=== PATIENT | male | born 1990 | race Caucasian/White ===

== ENCOUNTER 2017-02-25 21:36 | Emergency (ER) | payer OTHER ==
[2017-02-25] MEDS ORDERED: SODIUM CHLORIDE 0.9% 1,000 ML IV STA (21:46)
[2017-02-25] MEDS ORDERED: ONDANSETRON 4 MG/2 ML VIAL IVP STA (21:46)
[2017-02-25] MEDS ORDERED: FAMOTIDINE 20 MG/2 ML VIAL IV STA (21:51)
[2017-02-25] MEDS ORDERED: KETOROLAC 30 MG/ML 1 ML VIAL IVP STA (21:51)
[2017-02-25] MEDS ORDERED: SODIUM CHLORIDE 0.9% 2,000 ML IV ONE (21:51)
[2017-02-25 22:14] LABS: Basophils % (A) 0 %; Eosinophils # (A) 0.3 k/uL (0-0.7); Eosinophils % (A) 2 %; HCT 52.3 % (39.0-53.0); HGB 16.6 gm/dL (13.0-17.5); Lymphocytes % (A) 8 %; MCH 29.5 pg (25.0-35.0); MCHC 31.8 g/dL (31.0-37.0); Mean Platelet Volume 7.8; Monocytes # (A) 0.6 k/uL (0-1.0); Monocytes % (A) 4 %; Neutrophils # (A) 10.7 k/uL (1.3-7.7); Neutrophils % (A) 84 %; Platelet Count 323 k/uL (150-450); RBC 5.62 m/uL (4.30-5.90); RDW 14.7 % (11.5-15.5); WBC 12.7 k/uL (3.8-10.6)
[2017-02-25 22:30] LABS: ALT 63 U/L (21-72); AST 34 U/L (17-59); Albumin 4.5 g/dL (3.5-5.0); Alkaline Phosphatase 93 U/L (38-126); Amylase 50 U/L (30-110); Anion Gap 12 mmol/L; Blood Urea Nitrogen 16 mg/dL (9-20); Calcium 9.7 mg/dL (8.4-10.2); Carbon Dioxide 25 mmol/L (22-30); Chloride 106 mmol/L (98-107); Glucose 93 mg/dL (74-99); Lipase 107 U/L (23-300); Potassium 4.5 mmol/L (3.5-5.1); Sodium 143 mmol/L (137-145); Total Bilirubin 0.7 mg/dL (0.2-1.3); Total Protein 7.5 g/dL (6.3-8.2)
--- NOTE | 2017-02-25 22:32 | ED ---
Abdominal Pain HPI - General Chief Complaint: Abdominal Pain Stated Complaint: vomiting Time Seen by Provider: 02/25/17 21:46 Source: patient, RN notes reviewed Mode of arrival: ambulatory Limitations: no limitations - History of Present Illness Initial Comments: 26-year-old male presents emergency Department chief complaint abdominal pain. Patient states pain started earlier today associated with nausea vomiting diarrhea. Patient states every time he tries to eat he states he vomits and has diarrhea. Patient denies any contacts with some symptoms. He complains of diffuse abdominal pain nonradiating. Patient states nothing is helping the symptoms at this time if symptoms become worse other than eating. Patient denies fever, chills, night sweats. Denies headache, neck pain or neck stiffness. Patient has no dysuria no hematuria denies any melena or hematochezia. - Related Data Home Medications Medication Instructions Recorded Confirmed Ibuprofen [Motrin] 800 mg PO TID PRN 02/25/17 02/25/17 Previous Rx's Medication Instructions Recorded Ondansetron Odt [Zofran Odt] 4 mg PO Q8HR PRN #10 tab 02/25/17 Allergies Allergy/AdvReac Type Severity Reaction Status Date / Time clarithromycin [From Biaxin] Allergy Unknown Verified 02/25/17 21:59 pertussis vaccine,adsorbed Allergy Unknown Verified 02/25/17 21:59 [Pertussis Vaccine,Adsorbed] Review of Systems ROS Statement: Those systems with pertinent positive or pertinent negative responses have been documented in the HPI. ROS Other: All systems not noted in ROS Statement are negative. Past Medical History Past Medical History: Hypertension History of Any Multi-Drug Resistant Organisms: None Reported Past Surgical History: No Surgical Hx Reported Past Psychological History: No Psychological Hx Reported Smoking Status: Current every day smoker Past Alcohol Use History: Occasional Past Drug Use History: Marijuana General Exam Limitations: no limitations General appearance: alert, in no apparent distress Head exam: Present: atraumatic, normocephalic, normal inspection Eye exam: Present: normal appearance, PERRL, EOMI. Absent: scleral icterus, conjunctival injection, periorbital swelling ENT exam: Present: normal exam, normal oropharynx, mucous membranes moist, TM's normal bilaterally, normal external ear exam Neck exam: Present: normal inspection, full ROM. Absent: tenderness, meningismus, lymphadenopathy Respiratory exam: Present: normal lung sounds bilaterally. Absent: respiratory distress, wheezes, rales, rhonchi, stridor Cardiovascular Exam: Present: normal rhythm, tachycardia, normal heart sounds. Absent: systolic murmur, diastolic murmur, rubs, gallop, clicks GI/Abdominal exam: Present: soft, tenderness (Diffuse moderate), normal bowel sounds. Absent: distended, guarding, rebound, rigid Back exam: Absent: CVA tenderness (R), CVA tenderness (L) Neurological exam: Present: alert, oriented X3, CN II-XII intact Skin exam: Present: warm, dry, intact, normal color. Absent: rash Course Vital Signs 02/25/17 02/25/17 02/25/17 21:37 22:14 22:35 Temperature 98.9 F 100.7 F H 98.9 F Pulse Rate 110 H 96 94 Respiratory 20 81 H 18 Rate Blood Pressure 203/87 126/72 120/68 O2 Sat by Pulse 99 95 99 Oximetry 02/25/17 22:58 Temperature 99.7 F H Pulse Rate 92 Respiratory 18 Rate Blood Pressure 142/64 O2 Sat by Pulse 97 Oximetry Medical Decision Making - Medical Decision Making 26-year-old male presented for diarrhea.Patient states started today.Patient is improved after antiemetics and fluids.Patient was discharged Zofran.We discussed return parameters and close follow-up. - Lab Data Result diagrams: 02/25/17 22:02 02/25/17 22:02 Lab Results 02/25/17 02/25/17 02/25/17 Range/Units 22:02 22:02 22:41 WBC 12.7 H (3.8-10.6) k/uL RBC 5.62 (4.30-5.90) m/uL Hgb 16.6 (13.0-17.5) gm/dL Hct 52.3 (39.0-53.0) % MCV 93.0 (80.0-100.0) fL MCH 29.5 (25.0-35.0) pg MCHC 31.8 (31.0-37.0) g/dL RDW 14.7 (11.5-15.5) % Plt Count 323 (150-450) k/uL Neutrophils % 84 % Lymphocytes % 8 % Monocytes % 4 % Eosinophils % 2 % Basophils % 0 % Neutrophils # 10.7 H (1.3-7.7) k/uL Lymphocytes # 1.0 (1.0-4.8) k/uL Monocytes # 0.6 (0-1.0) k/uL Eosinophils # 0.3 (0-0.7) k/uL Basophils # 0.0 (0-0.2) k/uL Sodium 143 (137-145) mmol/L Potassium 4.5 (3.5-5.1) mmol/L Chloride 106 (98-107) mmol/L Carbon Dioxide 25 (22-30) mmol/L Anion Gap 12 mmol/L BUN 16 (9-20) mg/dL Creatinine 0.99 (0.66-1.25) mg/dL Est GFR (MDRD) Af Amer >60 (>60 ml/min/1.73 sqM) Est GFR (MDRD) Non-Af >60 (>60 ml/min/1.73 sqM) Glucose 93 (74-99) mg/dL Calcium 9.7 (8.4-10.2) mg/dL Total Bilirubin 0.7 (0.2-1.3) mg/dL AST 34 (17-59) U/L ALT 63 (21-72) U/L Alkaline Phosphatase 93 (38-126) U/L Total Protein 7.5 (6.3-8.2) g/dL Albumin 4.5 (3.5-5.0) g/dL Amylase 50 (30-110) U/L Lipase 107 (23-300) U/L Urine Color Yellow Urine Appearance Clear (Clear) Urine pH 5.5 (5.0-8.0) Ur Specific [place] 1.025 (1.001-1.035) Urine Protein Trace H (Negative) Urine Glucose (UA) Negative (Negative) Urine Ketones Negative (Negative) Urine Blood Negative (Negative) Urine Nitrite Negative (Negative) Urine Bilirubin Negative (Negative) Urine Urobilinogen <2.0 (<2.0) mg/dL Ur Leukocyte Esterase Negative (Negative) Disposition Clinical Impression: Gastroenteritis Disposition: HOME SELF-CARE Condition: Stable Instructions: Gastroenteritis (ED) Additional Instructions: Please return to the Emergency Department if symptoms worsen or any other concerns. Prescriptions: Ondansetron Odt [Zofran Odt] 4 mg PO Q8HR PRN #10 tab PRN Reason: Nausea Referrals: None,Stated [Primary Care Provider] - 1-2 days Time of Disposition: 23:02
[2017-02-25 22:35] VITALS: RESP 18
--- NOTE | 2017-02-25 22:41 | XR ---
EXAMINATION TYPE: XR KUB DATE OF EXAM: 02/25/2017 COMPARISON: NONE HISTORY: Abdominal pain TECHNIQUE: 2 views FINDINGS: There is no sign of intestinal obstruction or pneumoperitoneum. Fecal pattern is normal. Prudence ng bases are clear. There are no pathologic calcifications. IMPRESSION: Nonacute abdomen
[2017-02-25 22:51] LABS: Appearance,Urine Clear (Clear); Bilirubin,Urine Negative (Negative); Blood,Urine Negative (Negative); Color,Urine Yellow; Glucose,Urine (UA) Negative (Negative); Ketones,Urine Negative (Negative); Leukocyte Esterase,Urine Negative (Negative); Nitrite,Urine Negative (Negative); PH, Urine 5.5 (5.0-8.0); Protein,Urine Trace (Negative); Specific Gravity,Urine 1.025 (1.001-1.035); Urobilinogen,Urine <2.0 mg/dL (<2.0)
[2017-02-25] MEDS ORDERED: ONDANSETRON 4 MG ODT STARTER PACK 2 TAB BTL PO STA (23:02)
[2017-02-25 23:43] VITALS: BP 118/87; PULSE 93; TEMP 98.3
== END 2017-02-26 00:18 | disposition home or self-care (01) ==
LOC: EC 21:36
DX: K52.9 Noninfective gastroenteritis and colitis, unspecified (principal); F17.200 Nicotine dependence, unspecified, uncomplicated; Z88.1 Allergy status to other antibiotic agents; Z88.7 Allergy status to serum and vaccine
CPT/HCPCS: 36415; 93005; 80053; 82150; 83690; 85025; 81003; 74018; 99284; 96374; 96375 ×2; 96361 ×2; J2405; J1885; S0119

== ENCOUNTER 2017-04-24 19:21 | Emergency (ER) | payer OTHER ==
[2017-04-24 19:28] VITALS: PULSE 94; TEMP 97
--- NOTE | 2017-04-24 19:53 | ED ---
General Adult HPI - General Chief complaint: Shortness of Breath Stated complaint: arm pain Time Seen by Provider: 04/24/17 19:25 Source: patient, RN notes reviewed Mode of arrival: ambulatory Limitations: no limitations - History of Present Illness Initial comments: This is a 27-year-old male who presents to the emergency department complaining of a month-long history of left arm pain patient states it comes and goes intermittently. Patient states when it comes it comes on quickly and is significant pain and then it goes away Sometimes it's just numb down to his fingertips from his shoulder and other times there is quite a bit of pain patient states currently he is not having any pain but just prior to arrival while eating dinner his arm started hurting severely and he wasn't moving it or using it. Patient states she has full range of motion of the shoulder currently without eliciting any pain. Patient denies any swelling of the arm. Patient denies any chest pain difficulty breathing or shortness of breath. Patient denies any recent fever chills or cough per patient denies any recent injury or trauma to that extremity. - Related Data Home Medications Medication Instructions Recorded Confirmed Ibuprofen [Motrin Ib] 800 mg PO TID PRN 04/24/17 04/24/17 Previous Rx's Medication Instructions Recorded Ibuprofen [Motrin] 600 mg PO Q6HR PRN #20 tab 04/24/17 Allergies Allergy/AdvReac Type Severity Reaction Status Date / Time clarithromycin [From Biaxin] Allergy Unknown Verified 04/24/17 20:26 pertussis vaccine,adsorbed Allergy Unknown Verified 04/24/17 20:26 [Pertussis Vaccine,Adsorbed] Review of Systems ROS Statement: Those systems with pertinent positive or pertinent negative responses have been documented in the HPI. ROS Other: All systems not noted in ROS Statement are negative. Past Medical History Past Medical History: Hypertension History of Any Multi-Drug Resistant Organisms: None Reported Past Surgical History: No Surgical Hx Reported Past Psychological History: No Psychological Hx Reported Smoking Status: Current every day smoker Past Alcohol Use History: Occasional Past Drug Use History: Marijuana General Exam - General Exam Comments Initial Comments: GENERAL: Patient is well-developed and well-nourished. Patient is nontoxic and well- hydrated and is in no acute distress. ENT: Neck is soft and supple. No significant lymphadenopathy is noted. Oropharynx is clear. Moist mucous membranes. Neck has full range of motion without eliciting any pain. EYES: The sclera were anicteric and conjunctiva were pink and moist. Extraocular movements were intact and pupils were equal round and reactive to light. Eyelids were unremarkable. PULMONARY: Unlabored respirations. Good breath sounds bilaterally. No audible rales rhonchi or wheezing was noted. CARDIOVASCULAR: There is a regular rate and rhythm without any murmurs gallops or rubs. SKIN: Skin is clear with no lesions or rashes and otherwise unremarkable. NEUROLOGIC: Patient is alert and oriented x3. Cranial nerves II through XII are grossly intact. Motor and sensory are also intact. Normal speech, volume and content. Symmetrical smile. MUSCULOSKELETAL: Normal extremities with adequate strength and full range of motion. Patient has good bilateral radial pulses. LYMPHATICS: No significant lymphadenopathy is noted PSYCHIATRIC: Normal psychiatric evaluation. Limitations: no limitations Course Vital Signs 04/24/17 04/24/17 04/24/17 19:24 20:03 20:18 Temperature 97.0 F L Pulse Rate 94 Respiratory 18 16 Rate Blood Pressure 167/84 Blood Pressure 143/72 [Left Arm] Blood Pressure 141/66 [Right Arm] O2 Sat by Pulse 97 Oximetry Medical Decision Making - Medical Decision Making EKG shows normal sinus rhythm at 89 bpm ID interval is 156 QRS is 88 QT interval 338 QTC is 411. Patient's EKG shows no ST segment elevation however there is some T-wave flattening in the inferior leads. Patient remained chest pain-free. Patient denies any difficulty breathing. X-rays of the C-spine chest and shoulder were negative. I will back into reevaluate the patient he never had any pain while in the emergency department. Disposition Clinical Impression: Arm pain, left Disposition: HOME SELF-CARE Instructions: Paresthesia (ED) Prescriptions: Ibuprofen [Motrin] 600 mg PO Q6HR PRN #20 tab PRN Reason: For pain Referrals: None,Stated [Primary Care Provider] - 1-2 days Angella Estevez MD [STAFF PHYSICIAN] - 1-2 days Time of Disposition: 20:35
[2017-04-24 20:04] VITALS: BP 143/72
[2017-04-24 20:19] VITALS: RESP 16
--- NOTE | 2017-04-24 20:26 | XR ---
EXAMINATION TYPE: XR chest 2V DATE OF EXAM: 04/24/2017 COMPARISON: 06/01/2009 HISTORY: Arm numbness TECHNIQUE: Frontal and lateral views of the chest are obtained. FINDINGS: Heart and mediastinum are normal. Lungs are clear. Diaphragm is normal. Bony thorax appear s normal. IMPRESSION: Normal chest. No change.
--- NOTE | 2017-04-24 20:27 | XR ---
EXAMINATION TYPE: XR cervical spine comp DATE OF EXAM: 04/24/2017 COMPARISON: NONE HISTORY: Arm numbness TECHNIQUE: 6 views FINDINGS: Vertebra have normal spacing and alignment. Posterior elements are intact. Neural foramina are widely patent. Atlantoaxial facet joint is normal. There are no cervical ribs. IMPRESSION: Normal cervical spine.
--- NOTE | 2017-04-24 20:28 | XR ---
EXAMINATION TYPE: XR shoulder limited LT DATE OF EXAM: 04/24/2017 COMPARISON: NONE HISTORY: Arm numbness TECHNIQUE: 2 views FINDINGS: I see no fracture nor dislocation. Joint spaces are normal. There are no pathologic calcifi cations. IMPRESSION: Negative left shoulder exam.
== END 2017-04-24 21:09 | disposition home or self-care (01) ==
LOC: EC 19:21
DX: M79.602 Pain in left arm (principal); R06.02 Shortness of breath; F17.200 Nicotine dependence, unspecified, uncomplicated; Z88.1 Allergy status to other antibiotic agents; Z88.7 Allergy status to serum and vaccine
CPT/HCPCS: 71046; 72050; 93005; 99285

== ENCOUNTER 2017-08-25 15:11 | Emergency (ER) | payer OTHER ==
[2017-08-25 15:51] VITALS: TEMP 98.3
--- NOTE | 2017-08-25 16:21 | ED ---
General Adult HPI - General Chief complaint: Upper Respiratory Infection Stated complaint: congestion Time Seen by Provider: 08/25/17 16:07 Source: patient Mode of arrival: ambulatory Limitations: no limitations - History of Present Illness Initial comments: This is a 27-year-old male past medical history of hypertension who presents today for chief complaint of congestion and cough. Patient states that Saturday night after work he began experiencing chills, congestion with facial fullness and sore throat. He took some Motrin and sinus pills which she states helped minimally. He did note that his mom gave him one Keflex pill, which he stated did not help either. Patient continued the symptomatic treatment on Saturday and he had a fever that day of 101F, today when the symptoms had not resolved he decided to presents to emergency department because he states that he needs to work tomorrow. In addition patient admits to increasing sputum that is yellowish in color, some body aches, and decreased . Patient denies influenza vaccination. Patient denies chest pain, shortness of breath, hemoptysis, night sweats, unintentional weight loss, pain in face/head with bending forward, sinus tenderness, difficulty swallowing, neck rigidity or tenderness, ear pain, photophobia or rash. Patient denies any back pain, abdominal pain, nausea or vomiting, numbness or tingling, dysuria or hematuria, constipation or diarrhea, headaches or visual changes, or any other complaints. - Related Data Home Medications Medication Instructions Recorded Confirmed Ibuprofen [Motrin Ib] 800 mg PO TID PRN 04/24/17 04/24/17 Previous Rx's Medication Instructions Recorded Ibuprofen [Motrin] 600 mg PO Q6HR PRN #20 tab 04/24/17 Albuterol Inhaler [Ventolin Hfa 1 - 2 puff INHALATION DAILY PRN 7 08/25/17 Inhaler] Days #1 inhaler Oxymetazoline 0.05% [address] 2 spray EA NOSTRIL DAILY 3 Days #1 08/25/17 [Afrin 0.05% [address]] bottle guaiFENesin [Mucinex] 600 mg PO Q12HR PRN 5 Days #10 08/25/17 tab.er.12h predniSONE 20 mg PO DAILY 3 Days #3 tab 08/25/17 Allergies Allergy/AdvReac Type Severity Reaction Status Date / Time clarithromycin [From Biaxin] Allergy Unknown Verified 08/25/17 15:51 pertussis vaccine,adsorbed Allergy Unknown Verified 08/25/17 15:51 [Pertussis Vaccine,Adsorbed] Review of Systems ROS Statement: Those systems with pertinent positive or pertinent negative responses have been documented in the HPI. ROS Other: All systems not noted in ROS Statement are negative. Constitutional: Reports: as per HPI, fever, chills. Denies: night sweats Eyes: Denies: eye pain, eye discharge ENT: Reports: throat pain. Denies: ear pain Respiratory: Reports: cough. Denies: dyspnea, wheezes, hemoptysis, stridor Cardiovascular: Denies: chest pain, palpitations, dyspnea on exertion Endocrine: Reports: fatigue Gastrointestinal: Denies: abdominal pain, nausea, vomiting, diarrhea, constipation Genitourinary: Denies: urgency, dysuria, frequency, hematuria Musculoskeletal: Denies: back pain Skin: Denies: rash, lesions, change in color Neurological: Denies: headache, weakness, numbness, paresthesias, confusion Past Medical History Past Medical History: Hypertension History of Any Multi-Drug Resistant Organisms: None Reported Past Surgical History: No Surgical Hx Reported Past Psychological History: No Psychological Hx Reported Smoking Status: Current every day smoker Past Alcohol Use History: Occasional Past Drug Use History: Marijuana General Exam - General Exam Comments Initial Comments: General: The patient is awake and alert, in no distress, and does not appear acutely ill. Eye: Pupils are equal, round and reactive to light, extra-ocular movements are intact. No nystagmus. There is normal conjunctiva bilaterally. No signs of icterus. Ears, nose, mouth and throat: There are moist mucous membranes and no oral lesions. Mildly erythematous tonsils and oropharynx, no tonsillar exudate. Post nasal drip. Neck: The neck is supple, there is no tenderness or JVD. No palpable anterior cervical LN or tenderness. Cardiovascular: There is a regular rate and rhythm. No murmur, rub or gallop is appreciated. Respiratory: Mild expiratory wheeze, respirations are non-labored, breath sounds are equal. No stridor, rales, or rhonchi. Gastrointestinal: [Soft, non-distended, non-tender abdomen without masses or organomegaly noted. There is no rebound or guarding present. No CVA tenderness. Bowel sounds are unremarkable.] Musculoskeletal: Normal ROM, no tenderness. Strength 5/5. Sensation intact. Pulses equal bilaterally 2+. Neurological: A&O x 3. CN II-XII intact, There are no obvious motor or sensory deficits. Coordination appears grossly intact. Speech is normal. Skin: Skin is warm and dry and no rashes or lesions are noted. Psychiatric: Cooperative, appropriate mood & affect, normal judgment. Limitations: no limitations Course Vital Signs 08/25/17 08/25/17 08/25/17 15:49 16:10 18:00 Temperature 98.3 F 98.3 F Pulse Rate 89 86 Respiratory 18 16 18 Rate Blood Pressure 144/92 154/90 O2 Sat by Pulse 97 98 Oximetry Medical Decision Making - Medical Decision Making This is a 27-year-old male past medical history of hypertension who presents today for chief complaint of congestion and cough. Patient states that Saturday night after work he began experiencing chills, congestion with facial fullness and mild sore throat. He took some Motrin and sinus pills which she states helped minimally. He did note that his mom gave him one Keflex pill, which he stated did not help either. Patient continued the symptomatic treatment on Saturday and he had a fever that day of 101F, today when the symptoms had not resolved he decided to presents to emergency department because he states that he needs to work tomorrow. In addition patient admits to increasing sputum that is yellowish in color, some body aches, and decreased . Patient denies influenza vaccination. Patient denies chest pain, shortness of breath, hemoptysis, night sweats, unintentional weight loss, pain in face/head with bending forward, sinus tenderness, difficulty swallowing, neck rigidity or tenderness, ear pain, photophobia. Patient denies any back pain, abdominal pain , nausea or vomiting, numbness or tingling, dysuria or hematuria, constipation or diarrhea, headaches or visual changes, or any other complaint. CXR obtained ( -). Physical examination revealed lung with mild expiratory wheeze, no rales or rhonchi. erythematous oropharnx and tonsills, no exudates. Mild post nasal drips. Nares were not patent. Case was discussed with Dr. Fine who at this time we both feel this is a viral upper respiratory infection/viral pharyngitis. Pt was prescribed prednisone 20mg x3 days for pharyngitis, afrin for nasal decongestant (he was instructed only to use for 3 days or rebound congestion will occur), mucinex for congestion and an albuterol inhaler PRN for wheezing. Pt is to follow-up with PCP in 1-2 days. Pt requested work note. Disposition Clinical Impression: Viral URI with cough, Viral pharyngitis Disposition: HOME SELF-CARE Condition: Good Instructions: Upper Respiratory Infection (ED) Additional Instructions: Please use medication as discussed. Please follow-up with family doctor in the next 2 days of symptoms have not improved. Please return to emergency room if the symptoms increase or worsen or for any other concerns. Prescriptions: Albuterol Inhaler [Ventolin Hfa Inhaler] 1 - 2 puff INHALATION DAILY PRN 7 Days #1 inhaler PRN Reason: Wheezing guaiFENesin [Mucinex] 600 mg PO Q12HR PRN 5 Days #10 tab.er.12h PRN Reason: Cough Oxymetazoline 0.05% [address] [Afrin 0.05% [address]] 2 spray EA NOSTRIL DAILY 3 Days #1 bottle predniSONE 20 mg PO DAILY 3 Days #3 tab Is patient prescribed a controlled substance at d/c from ED?: No Referrals: None,Stated [Primary Care Provider] - 1-2 days Satya Flores MD [REFERRING] - 1-2 days Time of Disposition: 17:45
--- NOTE | 2017-08-25 17:21 | XR ---
EXAMINATION TYPE: XR chest 2V DATE OF EXAM: 08/25/2017 COMPARISON: Prior chest x-ray 04/24/2017 HISTORY: Cough and congestion TECHNIQUE: Frontal and lateral views of the chest are obtained. FINDINGS: There is no focal air space opacity, pleural effusion, or pneumothorax seen. The cardiac silhouette size is within normal limits. The osseous structures are intact. IMPRESSION: No acute cardiopulmonary process.
[2017-08-25 18:01] VITALS: BP 154/90; PULSE 86; RESP 18
== END 2017-08-25 18:00 | disposition home or self-care (01) ==
LOC: EC 15:11
DX: J02.9 Acute pharyngitis, unspecified (principal); F17.200 Nicotine dependence, unspecified, uncomplicated; Z88.1 Allergy status to other antibiotic agents; Z88.7 Allergy status to serum and vaccine
CPT/HCPCS: 71046; 99283

== ENCOUNTER 2017-09-21 21:56 | Emergency (ER) | payer OTHER ==
[2017-09-21 22:04] VITALS: BP 128/85; PULSE 90; RESP 20; TEMP 98.5
--- NOTE | 2017-09-21 22:44 | ED ---
Skin/Abscess/FB HPI - General Chief complaint: Skin/Abscess/Foreign Body Stated complaint: Rash Time Seen by Provider: 09/21/17 22:07 Source: patient, RN notes reviewed, old records reviewed Mode of arrival: ambulatory Limitations: no limitations - History of Present Illness Initial comments: Patient is a 27 year old male with pruritic erythematous rash over ankles after exposure to poison pearl. Patient has had symptoms for one week. Patient reports that it has spread to the back of the leg. His partner has this as well. - Related Data Home Medications Medication Instructions Recorded Confirmed Ibuprofen [Motrin Ib] 800 mg PO TID PRN 04/24/17 04/24/17 Previous Rx's Medication Instructions Recorded Ibuprofen [Motrin] 600 mg PO Q6HR PRN #20 tab 04/24/17 Albuterol Inhaler [Ventolin Hfa 1 - 2 puff INHALATION DAILY PRN 7 08/25/17 Inhaler] Days #1 inhaler Oxymetazoline 0.05% Nasl [place] 2 spray EA NOSTRIL DAILY 3 Days #1 08/25/17 [Afrin 0.05% Nasal [place]] bottle guaiFENesin [Mucinex] 600 mg PO Q12HR PRN 5 Days #10 08/25/17 tab.er.12h predniSONE 20 mg PO DAILY 3 Days #3 tab 08/25/17 Permethrin 5% Cream [Elimite] 1 applic TOPICAL ONCE #60 cream..g. 09/21/17 predniSONE 10 mg PO DAILY #30 tab 09/21/17 Allergies Allergy/AdvReac Type Severity Reaction Status Date / Time clarithromycin [From Biaxin] Allergy Unknown Verified 09/21/17 22:04 pertussis vaccine,adsorbed Allergy Unknown Verified 09/21/17 22:04 [Pertussis Vaccine,Adsorbed] Review of Systems ROS Statement: Those systems with pertinent positive or pertinent negative responses have been documented in the HPI. ROS Other: All systems not noted in ROS Statement are negative. Past Medical History Past Medical History: Hypertension History of Any Multi-Drug Resistant Organisms: None Reported Past Surgical History: No Surgical Hx Reported Past Psychological History: No Psychological Hx Reported Smoking Status: Current every day smoker Past Alcohol Use History: Occasional Past Drug Use History: Marijuana General Exam - General Exam Comments Initial Comments: This is a 27 year old male, no distress. Limitations: no limitations Head exam: Present: atraumatic, normocephalic, normal inspection Eye exam: Present: normal appearance, PERRL, EOMI. Absent: scleral icterus, conjunctival injection, periorbital swelling ENT exam: Present: normal exam, mucous membranes moist Neck exam: Present: normal inspection. Absent: tenderness, meningismus, lymphadenopathy Respiratory exam: Present: normal lung sounds bilaterally. Absent: respiratory distress, wheezes, rales, rhonchi, stridor Cardiovascular Exam: Present: regular rate, normal rhythm, normal heart sounds. Absent: systolic murmur, diastolic murmur, rubs, gallop, clicks GI/Abdominal exam: Present: soft, normal bowel sounds. Absent: distended, tenderness, guarding, rebound, rigid Back exam: Present: normal inspection Psychiatric exam: Present: normal affect, normal mood Skin exam: Present: warm, dry, intact, normal color, rash (Erythema over R andk L ankle, linear blister like pattern consistent with poison pearl. ) Course Vital Signs 09/21/17 22:02 Temperature 98.5 F Pulse Rate 90 Respiratory 20 Rate Blood Pressure 128/85 O2 Sat by Pulse 98 Oximetry Medical Decision Making - Medical Decision Making 27 year old male with rash over ankles after poison pearl exposure. At this time he has pruritic, linear eruthematous blisters and papules over feet, ankle and lower leg. At this time I will treat the patient for poison pearl exposure with steriods and steriod cream. Patient rash can appear similiar to scabies as well , discussed using permethrin cream if symptoms persist despite steriod treatment in one week. Disposition Clinical Impression: Poison pearl dermatitis Disposition: HOME SELF-CARE Condition: Good Instructions: Poison Pealr (ED) Additional Instructions: Patient is advised to take the steroids as prescribed. As we continue to have itching and symptoms persist despite using Caladryl lotion, steroids and Benadry for 10 days. Patient should be treated with the permethrin cream afterward. Prescriptions: Permethrin 5% Cream [Elimite] 1 applic TOPICAL ONCE #60 cream..g. predniSONE 10 mg PO DAILY #30 tab Is patient prescribed a controlled substance at d/c from ED?: No Referrals: None,Stated [Primary Care Provider] - 1-2 days Michelle Lang MD [STAFF PHYSICIAN] - 1-2 days Time of Disposition: 22:41
== END 2017-09-21 23:04 | disposition home or self-care (01) ==
LOC: EC 21:56
DX: L23.7 Allergic contact dermatitis due to plants, except food (principal); F17.200 Nicotine dependence, unspecified, uncomplicated; Z88.1 Allergy status to other antibiotic agents; Z88.7 Allergy status to serum and vaccine
CPT/HCPCS: 99283

== ENCOUNTER 2017-12-09 00:11 | Emergency (ER) | payer OTHER ==
--- NOTE | 2017-12-09 00:26 | ED ---
Trauma HPI - General Stated Complaint: fall Time Seen by Provider: 12/09/17 00:13 Source: patient, EMS Mode of arrival: EMS Limitations: no limitations - History of Present Illness Initial Comments: Benjie is a 19-year-old male who presents to the ED today via EMS for evaluation of head pressure after a fall. Patient reports that around 6 PM he was [place] his [place] working on putting a new roof on his shed in the rain. Patient reports that his foot slipped in the wet roof and he fell backwards off of the shed approximately 12 feet to the ground. Patient reports that his father was on the ground and was able to push him away from landing on a woodpile. Patient reports he landed flat on his back. He didn't have any loss of consciousness. He was able to stand and has been ambulatory since that time. Patient reports that since falling he's developed bilateral neck pain, pain in his right ribs and a headache. Patient is not on any antiplatelet or anticoagulant medications. - Related Data Home Medications Medication Instructions Recorded Confirmed Ibuprofen [Motrin Ib] 800 mg PO TID PRN 04/24/17 04/24/17 Previous Rx's Medication Instructions Recorded Ibuprofen [Motrin] 600 mg PO Q6HR PRN #20 tab 04/24/17 Oxymetazoline 0.05% Nasl [place] 2 spray EA NOSTRIL DAILY 3 Days #1 08/25/17 [Afrin 0.05% Nasal [place]] bottle RX: Albuterol Inhaler [Ventolin 1 - 2 puff INHALATION DAILY PRN 7 08/25/17 Hfa Inhaler] Days #1 inhaler RX: predniSONE 20 mg PO DAILY 3 Days #3 tab 08/25/17 guaiFENesin [Mucinex] 600 mg PO Q12HR PRN 5 Days #10 08/25/17 tab.er.12h RX: Permethrin 5% Cream [Elimite] 1 applic TOPICAL ONCE #60 cream..g. 09/21/17 RX: predniSONE 10 mg PO DAILY #30 tab 09/21/17 Ibuprofen [Motrin] 800 mg PO Q8HR #60 tab 12/09/17 Lidocaine 5% Patch [Lidoderm] 1 patch TOPICAL DAILY #30 patch 12/09/17 Orphenadrine [Norflex] 100 mg PO Q12H #30 tablet.er 12/09/17 Allergies Allergy/AdvReac Type Severity Reaction Status Date / Time clarithromycin [From Biaxin] Allergy Unknown Verified 09/21/17 22:04 pertussis vaccine,adsorbed Allergy Unknown Verified 09/21/17 22:04 [Pertussis Vaccine,Adsorbed] Review of Systems ROS Statement: Those systems with pertinent positive or pertinent negative responses have been documented in the HPI. ROS Other: All systems not noted in ROS Statement are negative. Past Medical History Past Medical History: Hypertension History of Any Multi-Drug Resistant Organisms: None Reported Past Surgical History: No Surgical Hx Reported Past Psychological History: No Psychological Hx Reported Smoking Status: Current every day smoker Past Alcohol Use History: Occasional Past Drug Use History: Marijuana General Exam - General Exam Comments Initial Comments: Physical Exam GENERAL: Patient is well-developed and well-nourished. Patient is nontoxic and well- hydrated and is in no distress. HENT: Normocephalic, Atraumatic. No carrillo signs No hemotympanum EYES: PERRL, EOMI PULMONARY: Unlabored respirations. No audible rales rhonchi or wheezing was noted. CARDIOVASCULAR: There is a regular rate and rhythm without any murmurs gallops or rubs. ABDOMEN: Soft and nontender with normal bowel sounds. SKIN: Skin is clear with no lesions or rashes and otherwise unremarkable. : Deferred NEUROLOGIC: Patient is alert and oriented x3. Moving all extremities spontaneously MUSCULOSKELETAL: Normal extremities with adequate strength and full range of motion. No lower extremity swelling or edema. No calf tenderness. Tenderness to palpation of right-sided posterior ribs PSYCHIATRIC: Normal psychiatric evaluation. Limitations: no limitations Limitations: no limitations Course Vital Signs 12/09/17 00:12 Temperature 98.1 F Pulse Rate 81 Respiratory 19 Rate Blood Pressure 129/91 O2 Sat by Pulse 97 Oximetry Medical Decision Making - Medical Decision Making Patient was seen and evaluated immediately upon arrival Patient with a 12 foot fall approximately 7 hours earlier today developing worsening bilateral upper neck, right-sided thoracic back and rib pain since the fall. Patient landed flat on his back, did not lose consciousness. Has not had any nausea, vomiting or altered mental status since that time. Patient has been ambulatory without difficulty. Labs and imaging were ordered Labs with no significant abnormalities Imaging with no evidence of acute intracranial process, no evidence of any fractures on CT or x-ray Results were discussed with the patient, I advised the patient that he likely has soft tissues injuries as well as muscle spasms. We'll treat this with NSAIDs and muscle relaxants. I suspect the patient may be suffering from a concussion. These results were discussed with the patient is discussed at bedside. Information on concussion and postconcussive syndrome will be provided to the patient, and addition I advised the patient maintained brain rest, I will provide a work note for him to have next 2 days off of work. Patient is agreeable to this plan. She does not have a primary care physician, will be recorded the [facility] for here on follow-up Return parameters were discussed, all questions pertaining to care were answered best my ability patient was discharged home in stable condition - Lab Data Result diagrams: 12/09/17 00:45 12/09/17 00:45 Lab Results 12/09/17 12/09/17 12/09/17 Range/Units 00:45 00:45 00:45 WBC 9.8 (3.8-10.6) k/uL RBC 4.81 (4.30-5.90) m/uL Hgb 14.3 (13.0-17.5) gm/dL Hct 44.3 (39.0-53.0) % MCV 92.2 (80.0-100.0) fL MCH 29.7 (25.0-35.0) pg MCHC 32.1 (31.0-37.0) g/dL RDW 13.9 (11.5-15.5) % Plt Count 341 (150-450) k/uL Neutrophils % 50 % Lymphocytes % 36 % Monocytes % 6 % Eosinophils % 6 % Basophils % 1 % Neutrophils # 4.9 (1.3-7.7) k/uL Lymphocytes # 3.5 (1.0-4.8) k/uL Monocytes # 0.6 (0-1.0) k/uL Eosinophils # 0.6 (0-0.7) k/uL Basophils # 0.1 (0-0.2) k/uL PT 9.6 (9.0-12.0) sec INR 1.0 (<1.2) APTT 22.9 (22.0-30.0) sec Sodium 140 (137-145) mmol/L Potassium 3.9 (3.5-5.1) mmol/L Chloride 112 H (98-107) mmol/L Carbon Dioxide 20 L (22-30) mmol/L Anion Gap 8 mmol/L BUN 13 (9-20) mg/dL Creatinine 0.75 (0.66-1.25) mg/dL Est GFR (CKD-EPI)AfAm >90 (>60 ml/min/1.73 sqM) Est GFR (CKD-EPI)NonAf >90 (>60 ml/min/1.73 sqM) Glucose 108 H (74-99) mg/dL Calcium 8.7 (8.4-10.2) mg/dL Total Bilirubin 0.3 (0.2-1.3) mg/dL AST 30 (17-59) U/L ALT 49 (21-72) U/L Alkaline Phosphatase 57 (38-126) U/L Troponin I (0.000-0.034) ng/mL Total Protein 5.8 L (6.3-8.2) g/dL Albumin 3.2 L (3.5-5.0) g/dL Urine Color Urine Appearance (Clear) Urine pH (5.0-8.0) Ur Specific [place] (1.001-1.035) Urine Protein (Negative) Urine Glucose (UA) (Negative) Urine Ketones (Negative) Urine Blood (Negative) Urine Nitrite (Negative) Urine Bilirubin (Negative) Urine Urobilinogen (<2.0) mg/dL Ur Leukocyte Esterase (Negative) Urine Opiates Screen (NotDetected) Ur Oxycodone Screen (NotDetected) Urine Methadone Screen (NotDetected) Ur Propoxyphene Screen (NotDetected) Ur Barbiturates Screen (NotDetected) U Tricyclic Antidepress (NotDetected) Ur Phencyclidine Scrn (NotDetected) Ur Amphetamines Screen (NotDetected) U Methamphetamines Scrn (NotDetected) U Benzodiazepines Scrn (NotDetected) Urine Cocaine Screen (NotDetected) U Marijuana (THC) Screen (NotDetected) Serum Alcohol <10 mg/dL 12/09/17 12/09/17 Range/Units 00:45 01:25 WBC (3.8-10.6) k/uL RBC (4.30-5.90) m/uL Hgb (13.0-17.5) gm/dL Hct (39.0-53.0) % MCV (80.0-100.0) fL MCH (25.0-35.0) pg MCHC (31.0-37.0) g/dL RDW (11.5-15.5) % Plt Count (150-450) k/uL Neutrophils % % Lymphocytes % % Monocytes % % Eosinophils % % Basophils % % Neutrophils # (1.3-7.7) k/uL Lymphocytes # (1.0-4.8) k/uL Monocytes # (0-1.0) k/uL Eosinophils # (0-0.7) k/uL Basophils # (0-0.2) k/uL PT (9.0-12.0) sec INR (<1.2) APTT (22.0-30.0) sec Sodium (137-145) mmol/L Potassium (3.5-5.1) mmol/L Chloride (98-107) mmol/L Carbon Dioxide (22-30) mmol/L Anion Gap mmol/L BUN (9-20) mg/dL Creatinine (0.66-1.25) mg/dL Est GFR (CKD-EPI)AfAm (>60 ml/min/1.73 sqM) Est GFR (CKD-EPI)NonAf (>60 ml/min/1.73 sqM) Glucose (74-99) mg/dL Calcium (8.4-10.2) mg/dL Total Bilirubin (0.2-1.3) mg/dL AST (17-59) U/L ALT (21-72) U/L Alkaline Phosphatase (38-126) U/L Troponin I <0.012 (0.000-0.034) ng/mL Total Protein (6.3-8.2) g/dL Albumin (3.5-5.0) g/dL Urine Color Yellow Urine Appearance Clear (Clear) Urine pH 5.5 (5.0-8.0) Ur Specific [place] 1.023 (1.001-1.035) Urine Protein Negative (Negative) Urine Glucose (UA) Negative (Negative) Urine Ketones Negative (Negative) Urine Blood Negative (Negative) Urine Nitrite Negative (Negative) Urine Bilirubin Negative (Negative) Urine Urobilinogen <2.0 (<2.0) mg/dL Ur Leukocyte Esterase Negative (Negative) Urine Opiates Screen Detected H (NotDetected) Ur Oxycodone Screen Not Detected (NotDetected) Urine Methadone Screen Not Detected (NotDetected) Ur Propoxyphene Screen Not Detected (NotDetected) Ur Barbiturates Screen Not Detected (NotDetected) U Tricyclic Antidepress Not Detected (NotDetected) Ur Phencyclidine Scrn Not Detected (NotDetected) Ur Amphetamines Screen Not Detected (NotDetected) U Methamphetamines Scrn Not Detected (NotDetected) U Benzodiazepines Scrn Not Detected (NotDetected) Urine Cocaine Screen Not Detected (NotDetected) U Marijuana (THC) Screen Not Detected (NotDetected) Serum Alcohol mg/dL EKG obtained at 12:10 AM, rate is 79, rhythm is sinus, there is a normal axis, there are normal intervals, VA 160, QRS 102, QTc 447. There are no acute ST elevations or depressions, no evidence of acute ischemia or infarction. 12/09/17 00:24 Disposition Clinical Impression: Fall, Concussion Disposition: HOME SELF-CARE Condition: Good Instructions: Concussion (ED), Post Concussion Syndrome (ED), Rib Contusion (ED ) Prescriptions: Ibuprofen [Motrin] 800 mg PO Q8HR #60 tab Lidocaine 5% Patch [Lidoderm] 1 patch TOPICAL DAILY #30 patch Orphenadrine [Norflex] 100 mg PO Q12H #30 tablet.er Is patient prescribed a controlled substance at d/c from ED?: No Referrals: None,Stated [Primary Care Provider] - 1-2 days [facility] [NON-STAFF] - 1-2 days Time of Disposition: 02:49
[2017-12-09 00:29] VITALS: RESP 19; TEMP 98.1
--- NOTE | 2017-12-09 01:06 | CT ---
EXAMINATION TYPE: CT brain donn wo con DATE OF EXAM: 12/09/2017 COMPARISON: 06/01/2009 HISTORY: Patient presents with back pain after fall from roof. prior on pacs. CT DLP: 1525.1 mGycm Automated exposure control for dose reduction was used. TECHNIQUE: CT scan of the head and cervical spine are performed without contrast. FINDINGS: Ventricles and sulci appear normal. There is no mass effect nor midline shift. There is n o sign of intracranial hemorrhage. There is mild mucosal thickening in the ethmoid air cells. Cervical vertebra have normal spacing and alignment. Posterior elements are intact. Facet joints appe ar normal. Skull base appears intact. IMPRESSION: Negative CT scan of the brain. Negative CT scan of the cervical spine. No change.
[2017-12-09 01:07] LABS: Basophils # (A) 0.1 k/uL (0-0.2); Basophils % (A) 1 %; Eosinophils # (A) 0.6 k/uL (0-0.7); Eosinophils % (A) 6 %; HCT 44.3 % (39.0-53.0); HGB 14.3 gm/dL (13.0-17.5); Lymphocytes # (A) 3.5 k/uL (1.0-4.8); Lymphocytes % (A) 36 %; MCH 29.7 pg (25.0-35.0); MCHC 32.1 g/dL (31.0-37.0); MCV 92.2 fL (80.0-100.0); Mean Platelet Volume 6.8; Monocytes # (A) 0.6 k/uL (0-1.0); Monocytes % (A) 6 %; Neutrophils # (A) 4.9 k/uL (1.3-7.7); Neutrophils % (A) 50 %; Platelet Count 341 k/uL (150-450); RBC 4.81 m/uL (4.30-5.90); RDW 13.9 % (11.5-15.5); WBC 9.8 k/uL (3.8-10.6)
--- NOTE | 2017-12-09 01:08 | XR ---
EXAMINATION TYPE: XR ribs RT w pa chest xray DATE OF EXAM: 12/09/2017 COMPARISON: 08/25/2017 HISTORY: Back pain TECHNIQUE: 5 views FINDINGS: Heart and mediastinum are normal. Lungs are clear. Costophrenic angles are clear. There is no sign of pleural effusion or pneumothorax. The right ribs appear intact. IMPRESSION: Normal chest. Normal right ribs.
--- NOTE | 2017-12-09 01:09 | XR ---
EXAMINATION TYPE: XR lumbar spine 2 or 3V DATE OF EXAM: 12/09/2017 COMPARISON: NONE HISTORY: Back pain TECHNIQUE: 3 views FINDINGS: Vertebra have normal spacing and alignment. Posterior elements are intact. Sacroiliac joint s appear normal. I see no fracture. IMPRESSION: Negative lumbar spine exam.
[2017-12-09 01:18] LABS: Partial Thromboplastin Time 22.9 sec (22.0-30.0); Prothrombin Time 9.6 sec (9.0-12.0)
[2017-12-09 01:26] LABS: ALT 49 U/L (21-72); AST 30 U/L (17-59); Albumin 3.2 g/dL (3.5-5.0); Alcohol <10 mg/dL; Alkaline Phosphatase 57 U/L (38-126); Anion Gap 8 mmol/L; Blood Urea Nitrogen 13 mg/dL (9-20); Calcium 8.7 mg/dL (8.4-10.2); Carbon Dioxide 20 mmol/L (22-30); Chloride 112 mmol/L (98-107); Glucose 108 mg/dL (74-99); Potassium 3.9 mmol/L (3.5-5.1); Sodium 140 mmol/L (137-145); Total Bilirubin 0.3 mg/dL (0.2-1.3); Total Protein 5.8 g/dL (6.3-8.2)
[2017-12-09] MEDS ORDERED: KETOROLAC 30 MG/ML 1 ML VIAL IVP STA (01:27)
[2017-12-09] MEDS ORDERED: ORPHENADRINE 30 MG/ML 2 ML VIAL IM STA (01:27)
[2017-12-09 01:53] LABS: Appearance,Urine Clear (Clear); Bilirubin,Urine Negative (Negative); Blood,Urine Negative (Negative); Color,Urine Yellow; Glucose,Urine (UA) Negative (Negative); Ketones,Urine Negative (Negative); Leukocyte Esterase,Urine Negative (Negative); Nitrite,Urine Negative (Negative); PH, Urine 5.5 (5.0-8.0); Protein,Urine Negative (Negative); Specific Gravity,Urine 1.023 (1.001-1.035); Urobilinogen,Urine <2.0 mg/dL (<2.0)
[2017-12-09 02:03] LABS: Cocaine Screen,Urine Not Detected (NotDetected); Opiate Screen,Urine Detected (NotDetected); Phencyclidine Screen,Urine Not Detected (NotDetected); Urn Cannabinoid Scrn Not Detected (NotDetected)
[2017-12-09 02:04] LABS: Amphetamine Screen,Urine Not Detected (NotDetected); Barbiturate Screen,Urine Not Detected (NotDetected); Benzodiazepines Screen,Urine Not Detected (NotDetected); Methadone Screen, Urine Not Detected (NotDetected); Oxycodone Screen, Urine Not Detected (NotDetected); Tricyclic Antidepressant,Urine Not Detected (NotDetected)
[2017-12-09 03:15] VITALS: BP 129/88; PULSE 67
== END 2017-12-09 02:58 | disposition home or self-care (01) ==
LOC: EC 00:11
DX: S06.0X0A Concussion without loss of consciousness, initial encounter (principal); M54.2 Cervicalgia; M54.6 Pain in thoracic spine; R07.81 Pleurodynia; F17.200 Nicotine dependence, unspecified, uncomplicated; Z88.1 Allergy status to other antibiotic agents; Z88.7 Allergy status to serum and vaccine; W13.2XXA Fall from, out of or through roof, initial encounter; Y93.H9 Activity, other involving exterior property and land maintenance, building and construction
CPT/HCPCS: 99284; 96374; 96372; 36415; 93005; 80053; 84484; 85025; 85610; 85730; 81003; 80306; 80320; 71101; 72100; 72125; 70450; J2360; J1885

== ENCOUNTER 2018-02-06 21:49 | Emergency (ER) | payer OTHER ==
--- NOTE | 2018-02-06 23:39 | XR ---
EXAMINATION TYPE: XR chest 2V DATE OF EXAM: 02/06/2018 COMPARISON: 08/25/2017 HISTORY: Cough TECHNIQUE: Frontal and lateral views of the chest are obtained. FINDINGS: Heart and mediastinum are normal. Lungs are clear. Diaphragm is normal. Bony thorax appear s normal. IMPRESSION: Normal chest. No change.
[2018-02-07 00:13] LABS: Basophils # (A) 0.1 k/uL (0-0.2); Basophils % (A) 1 %; Eosinophils # (A) 0.6 k/uL (0-0.7); Eosinophils % (A) 6 %; HCT 47.3 % (39.0-53.0); HGB 15.6 gm/dL (13.0-17.5); Lymphocytes # (A) 2.8 k/uL (1.0-4.8); Lymphocytes % (A) 28 %; MCH 29.8 pg (25.0-35.0); MCV 90.3 fL (80.0-100.0); Monocytes # (A) 0.8 k/uL (0-1.0); Monocytes % (A) 8 %; Neutrophils # (A) 5.6 k/uL (1.3-7.7); Neutrophils % (A) 56 %; Platelet Count 315 k/uL (150-450); RBC 5.24 m/uL (4.30-5.90); RDW 13.4 % (11.5-15.5); WBC 9.9 k/uL (3.8-10.6)
[2018-02-07 00:24] LABS: Anion Gap 7 mmol/L; Blood Urea Nitrogen 14 mg/dL (9-20); Calcium 9.3 mg/dL (8.4-10.2); Carbon Dioxide 23 mmol/L (22-30); Chloride 111 mmol/L (98-107); Glucose 114 mg/dL (74-99); Potassium 4.2 mmol/L (3.5-5.1); Sodium 141 mmol/L (137-145)
[2018-02-07 00:25] LABS: INR 0.9 (<1.2); Partial Thromboplastin Time 25.1 sec (22.0-30.0); Prothrombin Time 9.7 sec (9.0-12.0)
[2018-02-07 00:35] LABS: Creatine Kinase 145 U/L (55-170)
[2018-02-07 00:46] LABS: Creatine Kinase MB 1.9 ng/mL (0.0-2.4); Troponin I <0.012 ng/mL (0.000-0.034)
[2018-02-07] MEDS ORDERED: IPRATROPIUM-ALBUTEROL 3 ML NEB INHALATION STA (01:23)
[2018-02-07] MEDS ORDERED: predniSONE 20 MG TAB PO STA (01:24)
--- NOTE | 2018-02-07 02:09 | ED ---
URI HPI - General Chief Complaint: Upper Respiratory Infection Stated Complaint: Chest pain, sob Time Seen by Provider: 02/07/18 00:43 Source: patient Mode of arrival: ambulatory Limitations: no limitations - History of Present Illness Initial Comments: 27-year-old male every day smoker with past medical history hypertension presented today for chief complaint of cough, congestion and pain in chest with cough or deep inspiration. Patient states he's had a progressively worsening cough and congestion for the past 4 days, he noted wheeze as well as chills. Patient states sometimes he is nauseated after coughing for long periods time. Patient denies any body aches, diarrhea, doubt pain, back pain, pressure paresthesias, jaw pain. Patient does state he feels short of breath at times due to coughing area patient denies dyspnea on exertion or lower extremity edema. Patient states he may have a fever however he has not recorded on home. Remainder of ROS (-). Pt well appearing upon arrival. VS within normal limits. Advanced triage protocols performed. - Related Data Home Medications Medication Instructions Recorded Confirmed Ibuprofen [Motrin Ib] 800 mg PO TID PRN 04/24/17 04/24/17 Previous Rx's Medication Instructions Recorded Ibuprofen [Motrin] 600 mg PO Q6HR PRN #20 tab 04/24/17 Albuterol Inhaler [Ventolin Hfa 1 - 2 puff INHALATION DAILY PRN 7 08/25/17 Inhaler] Days #1 inhaler Oxymetazoline 0.05% Nasl [place] 2 spray EA NOSTRIL DAILY 3 Days #1 08/25/17 [Afrin 0.05% Nasal [place]] bottle guaiFENesin [Mucinex] 600 mg PO Q12HR PRN 5 Days #10 08/25/17 tab.er.12h predniSONE 20 mg PO DAILY 3 Days #3 tab 08/25/17 Permethrin 5% Cream [Elimite] 1 applic TOPICAL ONCE #60 cream..g. 09/21/17 predniSONE 10 mg PO DAILY #30 tab 09/21/17 Ibuprofen [Motrin] 800 mg PO Q8HR #60 tab 12/09/17 Lidocaine 5% Patch [Lidoderm] 1 patch TOPICAL DAILY #30 patch 12/09/17 Orphenadrine [Norflex] 100 mg PO Q12H #30 tablet.er 12/09/17 Albuterol Inhaler [Ventolin Hfa 1 - 2 puff INHALATION RT-Q6H PRN 02/07/18 Inhaler] 10 Days #1 inhaler Ipratropium [place] 0.06%Nasal 2 spray EA NOSTRIL BID 7 Days #1 02/07/18 [Atrovent Nasal 0.06%] bottle predniSONE 20 mg PO DAILY 5 Days #5 tab 02/07/18 Allergies Allergy/AdvReac Type Severity Reaction Status Date / Time clarithromycin [From Biaxin] Allergy Unknown Verified 02/06/18 22:03 pertussis vaccine,adsorbed Allergy Unknown Verified 02/06/18 22:03 [Pertussis Vaccine,Adsorbed] Review of Systems ROS Statement: Those systems with pertinent positive or pertinent negative responses have been documented in the HPI. ROS Other: All systems not noted in ROS Statement are negative. Constitutional: Reports: fever, chills ENT: Reports: throat pain (with cough) Respiratory: Reports: cough, dyspnea, wheezes. Denies: hemoptysis, stridor Cardiovascular: Reports: chest pain. Denies: palpitations, dyspnea on exertion , orthopnea, edema Endocrine: Denies: fatigue Gastrointestinal: Reports: nausea. Denies: abdominal pain, vomiting, diarrhea, constipation, hematemesis, melena, hematochezia Genitourinary: Denies: urgency, dysuria Musculoskeletal: Denies: back pain Skin: Denies: rash, lesions Neurological: Denies: headache, weakness, numbness, paresthesias Past Medical History Past Medical History: Hypertension History of Any Multi-Drug Resistant Organisms: None Reported Past Surgical History: No Surgical Hx Reported Past Psychological History: No Psychological Hx Reported Smoking Status: Current every day smoker Past Alcohol Use History: Occasional Past Drug Use History: Marijuana General Exam - General Exam Comments Initial Comments: General: The patient is awake and alert, in no distress, and does not appear acutely ill. Eye: Pupils are equal, round and reactive to light, extra-ocular movements are intact. No nystagmus. There is normal conjunctiva bilaterally. No signs of icterus. Ears, nose, mouth and throat: There are moist mucous membranes and no oral lesions. Oropharynx is mildly erythematous, postnasal drip noted. Clear rhinorrhea. Uvula midline. No tonsillar enlargement states or lesions. Back membranes within normal limits bilaterally. Extraocular canal within normal limits bilaterally. No pain to palpation mastoid. Neck: The neck is supple, there is no tenderness or JVD. No anterior cervical lymphadenopathy. Cardiovascular: There is a regular rate and rhythm. No murmur, rub or gallop is appreciated. Respiratory: Lungs are clear to auscultation, respirations are non-labored, breath sounds are equal. There are mild extra wheezes noted on exam. No stridor rales or rhonchi. No crackles at lung bases. Negative egophony in all lung rodriguez. Gastrointestinal: Soft, non-distended, non-tender abdomen without masses or organomegaly noted. There is no rebound or guarding present. No CVA tenderness. Bowel sounds are unremarkable. Musculoskeletal: Normal ROM, no tenderness. Strength 5/5. Sensation intact. Pulses equal bilaterally 2+. Neurological: A&O x 3. CN II-XII intact, There are no obvious motor or sensory deficits. Coordination appears grossly intact. Speech is normal. Skin: Skin is warm and dry and no rashes or lesions are noted. No lower extremity edema, negative homans. Psychiatric: Cooperative, appropriate mood & affect, normal judgment. Limitations: no limitations Course Vital Signs 02/06/18 02/07/18 02/07/18 22:00 01:20 01:35 Temperature 98.4 F 98.4 F Pulse Rate 85 74 72 Respiratory 16 18 14 Rate Blood Pressure 105/80 118/57 O2 Sat by Pulse 97 95 Oximetry 02/07/18 02/07/18 01:41 02:20 Temperature 98.5 F Pulse Rate 79 100 Respiratory 16 17 Rate Blood Pressure 134/79 O2 Sat by Pulse 96 Oximetry Medical Decision Making - Medical Decision Making 27-year-old male with complaints concerning for upper respiratory infection. EKG no acute findings. Chest x-ray negative for any findings concerning for pneumonia. No clinical findings suspicious for a focal consolidation. Patient' s vital signs stable. Troponin negative, obtained via [facility] protocols-no concern for ACS given history. Remainder of laboratory findings unremarkable. Patient given 1 DuoNeb treatment for mild expiratory wheeze. He stated this improved breathing. At this I do feel patient is stable for discharge with symptomatic treatment. Patient is agreeable discharge, denies questions at this time. Pt agreeable with discharge, return parameters discussed at length prior to discharge. Denies questions. Pt comfortable with discharge, denies questions. - Lab Data Result diagrams: 02/07/18 00:01 02/07/18 00:01 Lab Results 02/07/18 02/07/18 02/07/18 Range/Units 00:01 00:01 00:01 WBC 9.9 (3.8-10.6) k/uL RBC 5.24 (4.30-5.90) m/uL Hgb 15.6 (13.0-17.5) gm/dL Hct 47.3 (39.0-53.0) % MCV 90.3 (80.0-100.0) fL MCH 29.8 (25.0-35.0) pg MCHC 33.0 (31.0-37.0) g/dL RDW 13.4 (11.5-15.5) % Plt Count 315 (150-450) k/uL Neutrophils % 56 % Lymphocytes % 28 % Monocytes % 8 % Eosinophils % 6 % Basophils % 1 % Neutrophils # 5.6 (1.3-7.7) k/uL Lymphocytes # 2.8 (1.0-4.8) k/uL Monocytes # 0.8 (0-1.0) k/uL Eosinophils # 0.6 (0-0.7) k/uL Basophils # 0.1 (0-0.2) k/uL PT (9.0-12.0) sec INR (<1.2) APTT (22.0-30.0) sec Sodium 141 (137-145) mmol/L Potassium 4.2 (3.5-5.1) mmol/L Chloride 111 H (98-107) mmol/L Carbon Dioxide 23 (22-30) mmol/L Anion Gap 7 mmol/L BUN 14 (9-20) mg/dL Creatinine 0.81 (0.66-1.25) mg/dL Est GFR (CKD-EPI)AfAm >90 (>60 ml/min/1.73 sqM) Est GFR (CKD-EPI)NonAf >90 (>60 ml/min/1.73 sqM) Glucose 114 H (74-99) mg/dL Calcium 9.3 (8.4-10.2) mg/dL Total Creatine Kinase 145 (55-170) U/L CK-MB (CK-2) 1.9 (0.0-2.4) ng/mL CK-MB (CK-2) Rel Index 1.3 Troponin I <0.012 (0.000-0.034) ng/mL 02/07/18 Range/Units 00:01 WBC (3.8-10.6) k/uL RBC (4.30-5.90) m/uL Hgb (13.0-17.5) gm/dL Hct (39.0-53.0) % MCV (80.0-100.0) fL MCH (25.0-35.0) pg MCHC (31.0-37.0) g/dL RDW (11.5-15.5) % Plt Count (150-450) k/uL Neutrophils % % Lymphocytes % % Monocytes % % Eosinophils % % Basophils % % Neutrophils # (1.3-7.7) k/uL Lymphocytes # (1.0-4.8) k/uL Monocytes # (0-1.0) k/uL Eosinophils # (0-0.7) k/uL Basophils # (0-0.2) k/uL PT 9.7 (9.0-12.0) sec INR 0.9 (<1.2) APTT 25.1 (22.0-30.0) sec Sodium (137-145) mmol/L Potassium (3.5-5.1) mmol/L Chloride (98-107) mmol/L Carbon Dioxide (22-30) mmol/L Anion Gap mmol/L BUN (9-20) mg/dL Creatinine (0.66-1.25) mg/dL Est GFR (CKD-EPI)AfAm (>60 ml/min/1.73 sqM) Est GFR (CKD-EPI)NonAf (>60 ml/min/1.73 sqM) Glucose (74-99) mg/dL Calcium (8.4-10.2) mg/dL Total Creatine Kinase (55-170) U/L CK-MB (CK-2) (0.0-2.4) ng/mL CK-MB (CK-2) Rel Index Troponin I (0.000-0.034) ng/mL - EKG Data EKG Comments: A 12-lead EKG was performed and shows the following: Rate is 92bpm, and rhythm is normal sinus. There are normal QRS complexes and normal R-wave progression. ST segments have no elevation or depression, and OR segments appear normal. Disposition Clinical Impression: Bronchitis Disposition: HOME SELF-CARE Condition: Good Instructions: Acute Bronchitis (ED) Additional Instructions: Please use medication as discussed. Please follow-up with family doctor in the next 2 days. Please return to emergency room if the symptoms increase or worsen or for any other concerns. Prescriptions: Albuterol Inhaler [Ventolin Hfa Inhaler] 1 - 2 puff INHALATION RT-Q6H PRN 10 Days #1 inhaler PRN Reason: Wheezing Ipratropium [place] 0.06%Nasal [Atrovent Nasal 0.06%] 2 spray EA NOSTRIL BID 7 Days #1 bottle predniSONE 20 mg PO DAILY 5 Days #5 tab Is patient prescribed a controlled substance at d/c from ED?: No Referrals: Rajendra Saleh MD [Primary Care Provider] - 1-2 days Time of Disposition: 02:09
[2018-02-07 02:22] VITALS: BP 134/79; PULSE 100; RESP 17; TEMP 98.5
== END 2018-02-07 02:23 | disposition home or self-care (01) ==
LOC: EC 21:49
DX: J40 Bronchitis, not specified as acute or chronic (principal); J39.2 Other diseases of pharynx; F17.200 Nicotine dependence, unspecified, uncomplicated; Z88.1 Allergy status to other antibiotic agents; Z88.7 Allergy status to serum and vaccine
CPT/HCPCS: 36415; 94640; 93005; 80048; 82550; 82553; 84484; 85025; 85610; 85730; 71046; 99285; J7512

== ENCOUNTER 2018-02-18 19:05 | Emergency (ER) | payer OTHER ==
[2018-02-18] MEDS ORDERED: ACETAMINOPHEN TAB 500 MG TAB PO STA (20:08)
[2018-02-18] MEDS ORDERED: IBUPROFEN 600 MG TAB PO STA (20:08)
--- NOTE | 2018-02-18 20:11 | ED ---
General Adult HPI - General Chief complaint: Fever Stated complaint: fever Time Seen by Provider: 02/18/18 19:52 Source: patient, RN notes reviewed Mode of arrival: ambulatory Limitations: no limitations - History of Present Illness Initial comments: 27-year-old male presents to the emergency department for a chief complaint of fever times one day. Patient states he had a fever during this morning. He has not taken any Motrin or Tylenol. Patient states he has had a sinus infection for the past 5 days. He was put on a steroid as well as an inhaler. Patient states he has also had a cough for the past 2 days. Patient denies the cough being productive. Patient denies history of asthma. Patient does admit to body aches and chills. Denies having had a flu shot this season. He denies any abdominal pain or dysuria. He does admit to one episode of vomiting earlier today. States he is having bowel movements normally and passing gas. Patient has no other complaints at this time including shortness of breath, chest pain, abdominal pain, headache, or visual changes. - Related Data Home Medications Medication Instructions Recorded Confirmed Varenicline [Chantix Starter Pack] See Taper PO DIRECTED 02/18/18 02/18/18 Allergies Allergy/AdvReac Type Severity Reaction Status Date / Time clarithromycin [From Biaxin] Allergy Unknown Verified 02/18/18 20:14 Childhood pertussis vaccine,adsorbed Allergy Unknown Verified 02/18/18 20:14 [Pertussis Vaccine,Adsorbed] Review of Systems ROS Statement: Those systems with pertinent positive or pertinent negative responses have been documented in the HPI. ROS Other: All systems not noted in ROS Statement are negative. Past Medical History Past Medical History: Hypertension History of Any Multi-Drug Resistant Organisms: None Reported Past Surgical History: No Surgical Hx Reported Past Psychological History: No Psychological Hx Reported Smoking Status: Current every day smoker Past Alcohol Use History: Occasional Past Drug Use History: Marijuana General Exam Limitations: no limitations General appearance: alert, in no apparent distress Head exam: Present: atraumatic, normocephalic, normal inspection Eye exam: Present: normal appearance, PERRL, EOMI. Absent: scleral icterus, conjunctival injection, periorbital swelling ENT exam: Present: normal exam, normal oropharynx (Uvula midline), mucous membranes moist, normal external ear exam Neck exam: Present: normal inspection, full ROM. Absent: tenderness, meningismus, lymphadenopathy Respiratory exam: Present: rales (LLL). Absent: respiratory distress, wheezes, rhonchi, stridor Cardiovascular Exam: Present: regular rate, normal rhythm, normal heart sounds. Absent: systolic murmur, diastolic murmur, rubs, gallop, clicks GI/Abdominal exam: Present: soft, normal bowel sounds. Absent: distended, tenderness, guarding, rebound, rigid Neurological exam: Present: alert, oriented X3, CN II-XII intact Psychiatric exam: Present: normal affect, normal mood Course Vital Signs 02/18/18 02/18/18 02/18/18 19:16 21:31 22:45 Temperature 100.1 F H 103.5 F H 99.1 F Pulse Rate 118 H 106 H 92 Respiratory 20 20 18 Rate Blood Pressure 104/62 116/68 119/61 O2 Sat by Pulse 97 94 L 97 Oximetry Medical Decision Making - Medical Decision Making 27-year-old male presents to the emergency department for a chief complaint of fever times one day. Patient is positive for influenza. Chest x-ray is negative for pneumonia. Report and image were reviewed. After Motrin and Tylenol given patient temperature 103.5 although tachycardia did improve somewhat. Patient was then given a liter of fluids. Vitals did improve to an oral temperature of 99.1 as well as a heart rate of 92. Patient is feeling well enough to go home. I discussed risks versus benefits of Tamiflu and at this time patient declines Tamiflu treatment. Discussed drinking plenty of fluids, resting, and alternating Motrin and Tylenol for fever relief. Patient was given work off for 3 days. He will follow up with primary care and return to the ED if he has any worsening symptoms. - Lab Data Lab Results 02/18/18 Range/Units 20:10 Influenza Type A RNA Detected H (Not Detectd) Influenza Type B (PCR) Not Detected (Not Detectd) Disposition Clinical Impression: Influenza Disposition: HOME SELF-CARE Condition: Good Instructions: Fever in Adults (ED), Influenza (ED) Additional Instructions: Please follow up with primary care in 1 to 2 days. Alternate Motrin and Tylenol every 3 hours for fever. Return to the emergency department if you have any worsening symptoms. Is patient prescribed a controlled substance at d/c from ED?: No Referrals: Rajendra Saleh MD [Primary Care Provider] - 1-2 days Time of Disposition: 22:26
--- NOTE | 2018-02-18 20:53 | XR ---
EXAMINATION: XR chest 2V DATE AND TIME: 02/18/2018 8:25 PM CLINICAL INDICATION: PHH; Pain TECHNIQUE: Departmental protocol COMPARISON: 02/06/2018 FINDINGS: The lungs are clear. The pleural spaces are negative. The cardiac silhouette is not enlarged. The remainder of the mediastinal silhouette is unremarkable. The skeletal structures and soft tissues are negative for acute findings. IMPRESSION: NO ACUTE PROCESS.
[2018-02-18] MEDS ORDERED: SODIUM CHLORIDE 0.9% 1,000 ML IV STA (21:31)
[2018-02-18 22:46] VITALS: BP 119/61; PULSE 92; RESP 18; TEMP 99.1
== END 2018-02-18 22:56 | disposition home or self-care (01) ==
LOC: EC 19:05
DX: J11.1 Influenza due to unidentified influenza virus with other respiratory manifestations (principal); F17.200 Nicotine dependence, unspecified, uncomplicated; Z53.29 Procedure and treatment not carried out because of patient's decision for other reasons; Z88.1 Allergy status to other antibiotic agents; Z88.7 Allergy status to serum and vaccine
CPT/HCPCS: 71046; 87502; 96360; 99283

== ENCOUNTER 2018-05-14 15:49 | Emergency (ER) | payer OTHER ==
[2018-05-14 16:08] VITALS: BP 107/68; PULSE 73; RESP 18; TEMP 97.8
[2018-05-14] MEDS ORDERED: DIAZEPAM 5 MG TAB PO STA (16:29)
[2018-05-14] MEDS ORDERED: Acetaminophen-Codeine 300-30mg TAB PO STA (16:29)
--- NOTE | 2018-05-14 16:31 | ED ---
Back Pain HPI - General Chief Complaint: Back Pain/Injury Stated Complaint: back pain Time Seen by Provider: 05/14/18 16:12 Source: patient Limitations: no limitations - History of Present Illness Initial Comments: 28-year-old male presenting today for chief complaint of left-sided low back pain. Patient states that 30 minutes prior to arrival he is attempting to move a stove when he felt a pain in his left lower back. Denies fall or trauma to the head or neck. He states is on the left side denies a midline tenderness. He denies any radiation of the pain stating is localized. Patient denies any numbness tingling loss sensation of the lower extremity. He denies any weakness of the legs. He denies any urinary retention loss of bowel bladder control. Denies IV drug use, fever or chills night sweats or history of cancer. Remaining review of systems negative. Upon arrival patient appears well he is ambulatory no signs of acute distress. Patient denies any recent shortness of breath, chest pain, abdominal pain, nausea or vomiting, numbness or tingling, dysuria or hematuria, constipation or diarrhea, headaches or visual changes, or any other complaints. - Related Data Home Medications Medication Instructions Recorded Confirmed Ibuprofen [Motrin] 800 mg PO DAILY PRN 05/14/18 05/14/18 Previous Rx's Medication Instructions Recorded Cyclobenzaprine [Flexeril] 10 mg PO TID 3 Days #9 tab 05/14/18 Allergies Allergy/AdvReac Type Severity Reaction Status Date / Time clarithromycin [From Biaxin] Allergy Unknown Verified 05/14/18 16:42 Childhood pertussis vaccine,adsorbed Allergy Unknown Verified 05/14/18 16:42 [Pertussis Vaccine,Adsorbed] Review of Systems ROS Statement: Those systems with pertinent positive or pertinent negative responses have been documented in the HPI. ROS Other: All systems not noted in ROS Statement are negative. Past Medical History Past Medical History: Hypertension History of Any Multi-Drug Resistant Organisms: None Reported Past Surgical History: No Surgical Hx Reported Past Psychological History: No Psychological Hx Reported Smoking Status: Former smoker Past Alcohol Use History: Occasional Past Drug Use History: Marijuana General Exam - General Exam Comments Initial Comments: General: The patient is awake and alert, in no distress, and does not appear acutely ill. Eye: Pupils are equal, round and reactive to light, extra-ocular movements are intact. No nystagmus. There is normal conjunctiva bilaterally. No signs of icterus. Ears, nose, mouth and throat: There are moist mucous membranes and no oral lesions. Neck: The neck is supple, there is no tenderness or JVD. Cardiovascular: There is a regular rate and rhythm. No murmur, rub or gallop is appreciated. Respiratory: Lungs are clear to auscultation, respirations are non-labored, breath sounds are equal. No wheezes, stridor, rales, or rhonchi. Musculoskeletal: Upon inspection of the cervical thoracic lumbar spine there is no acute abnormalities. Patient has no tenderness midline of the cervical thoracic or lumbar spine. Patient has left-sided palpable muscle spasm as well as paravertebral tenderness. Normal ROM, no tenderness of the lower extremities. Negative straight leg raise bilaterally Strength 5/5 of the lower extremity is equal comparison bilaterally. Sensation intact of the lower extremities equal comparison bilaterally including the saddle region. DP pulses equal bilaterally 2+. Patient ambulated without difficulty. Patient is able to fully range at the back with discomfort in the left lower aspect. Neurological: A&O x 3. CN II-XII intact, There are no obvious motor or sensory deficits. Coordination appears grossly intact. Speech is normal. Skin: Skin is warm and dry and no rashes or lesions are noted. Psychiatric: Cooperative, appropriate mood & affect, normal judgment. Limitations: no limitations Course Vital Signs 05/14/18 16:06 Temperature 97.8 F Pulse Rate 73 Respiratory 18 Rate Blood Pressure 107/68 O2 Sat by Pulse 96 Oximetry Medical Decision Making - Medical Decision Making 28-year-old male presenting for left-sided low back pain. Mostly paravertebral tenderness with muscle spasm. At this time feel patient is muscle strain given history of moving heavy object. Patient is no midline tenderness no findings concerning for cauda equina or compression of nerves. Patient denies radiation of the pain. Patient was provided muscle relaxant as well as pain medication the emergency department. Patient has right home. Patient appeared prescribed and a prescription of Flexeril upon discharge. Patient has ibuprofen 800 at home. Patient was given instruction to ice pack point minutes on 20 minutes off or use heat which ever is preferred for comfort. This time I do feel patient is stable for discharge with the medic treatment as discussed. Patient is to follow-up with primary care provider if symptoms persist. Patient is agreeable plan as well as discharge. Denies questions at this time. Patient was discharged appeared well Disposition Clinical Impression: Low back strain, Muscle spasm Disposition: HOME SELF-CARE Condition: Good Instructions (If sedation given, give patient instructions): Low Back Strain (ED), Acute Low Back Pain (ED) Additional Instructions: Please use medication as discussed including previously prescribed ibuprofen 800 mg. Please follow-up with family doctor in the next 2 days of symptoms have not improved. Please return to emergency room if the symptoms increase or worsen or for any other concerns, loss of bowel bladder control, urinary retention noticed tingling loss sensation of the legs or muscle weakness of the legs. Prescriptions: Cyclobenzaprine [Flexeril] 10 mg PO TID 3 Days #9 tab Is patient prescribed a controlled substance at d/c from ED?: No Referrals: Rajendra Saleh MD [Primary Care Provider] - 1-2 days Time of Disposition: 16:31
== END 2018-05-14 16:48 | disposition home or self-care (01) ==
LOC: EC 15:49
DX: S39.012A Strain of muscle, fascia and tendon of lower back, initial encounter (principal); M62.830 Muscle spasm of back; Z87.891 Personal history of nicotine dependence; Z88.1 Allergy status to other antibiotic agents; Z88.7 Allergy status to serum and vaccine
CPT/HCPCS: 99283

== ENCOUNTER 2018-09-22 14:30 | Emergency (ER) | payer OTHER ==
[2018-09-22 14:47] VITALS: BP 112/75; PULSE 77; RESP 16; TEMP 97.8
[2018-09-22] MEDS ORDERED: IBUPROFEN 600 MG TAB PO STA (15:21)
--- NOTE | 2018-09-22 15:32 | XR ---
EXAMINATION TYPE: XR chest 2V DATE OF EXAM: 09/22/2018 COMPARISON: 02/18/2018 HISTORY: Chest pain TECHNIQUE: Frontal and lateral views of the chest are obtained. FINDINGS: There is no focal air space opacity. No evidence for pneumothorax. No pleural effusion. The cardiac silhouette size is within normal limits. The osseous structures are grossly intact. IMPRESSION: 1. No acute cardiopulmonary process.
--- NOTE | 2018-09-22 15:33 | XR ---
EXAMINATION TYPE: XR shoulder complete RT DATE OF EXAM: 09/22/2018 CLINICAL HISTORY: pain TECHNIQUE: Three views of the right shoulder are obtained. COMPARISON: None FINDINGS: There is no acute fracture/dislocation evident. The acromioclavicular and glenohumeral thee int spaces appear within normal limits. The visualized ribs are intact and unremarkable. IMPRESSION: 1. There is no acute fracture or dislocation. ICD 10 NO FRACTURE, INITIAL EVALUATION
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
== END 2018-09-22 16:19 | disposition home or self-care (01) ==
LOC: EC 14:30
DX: S29.011A Strain of muscle and tendon of front wall of thorax, initial encounter (principal); Z88.1 Allergy status to other antibiotic agents; Z88.7 Allergy status to serum and vaccine; Z87.891 Personal history of nicotine dependence; X50.0XXA Overexertion from strenuous movement or load, initial encounter; Y93.89 Activity, other specified
CPT/HCPCS: 71046; 99283

== ENCOUNTER → 2018-09-30 | Outpatient (CLI) | payer SELFPAY ==
--- NOTE | 2018-09-30 18:45 | XR ---
PROCEDURE: XR lumbar spine - 3V DATE AND TIME: 09/30/2018 6:36 PM CLINICAL INDICATION: PHH; pain since pulling heavy object yesterday. TECHNIQUE: Department protocol COMPARISON: 12/09/2017 FINDINGS: There is no fracture or malalignment. The soft tissues are unremarkable. IMPRESSION: Negative examination.
== END ==
LOC: RADXRMAIN 18:16
PROVIDERS: ATTEND Physician Assistant
DX: S39.012A Strain of muscle, fascia and tendon of lower back, initial encounter (principal)
CPT/HCPCS: 72100